=== PATIENT | female | born 1940 | race Caucasian/White ===

== ENCOUNTER 2021-02-06 11:19 | Outpatient (CLI) | payer MEDICAID, SELFPAY ==
--- NOTE | 2021-02-06 11:30 | NM_ITS ---
WS: [id number] NUCLEAR MEDICINE THYROID UPTAKE AND SCAN HISTORY: NONTOXIC SINGLE THYROID NODULE COMPARISON: Thyroid ultrasound 12/07/2020 Radionucleotide: 115 uCi Iodine-123 sodium iodide capsule. Oral ingestion. Imaging performed at 24 hours post ingestion of capsule. Marker placed over the chin and suprasternal notch. Hyperfunctioning nodule in the lower pole of the LEFT thyroid gland. There is mild bulging of the con tour in the lower pole of the RIGHT thyroid which corresponds to the visualized thyroid on ultrasound . No photopenic defect. Thyroid uptake at 24 hours: 40%. (Normal uptake at 24 hours 10-30%). NM/NM thyroid uptake multi [id number] IMPRESSION: 1. Hyperfunctioning nodule lower pole LEFT thyroid. 2. No cold nodules are identified. 3. Mild increased uptake at 24 hours.
== END 2021-02-06 11:20 | disposition home or self-care (01) ==
PROVIDERS: Visit Provider Specialist
DX: E04.1 Nontoxic single thyroid nodule (principal)
CPT/HCPCS: 78014; A9516

== ENCOUNTER → 2021-09-13 14:27 | Outpatient (BNVA) | payer MEDICAID, SELFPAY | PROVIDERS: Referring Provider Specialist; Visit Provider Internal Medicine | DX: E04.1 Nontoxic single thyroid nodule (principal); H91.90 Unspecified hearing loss, unspecified ear; E05.10 Thyrotoxicosis with toxic single thyroid nodule without thyrotoxic crisis or storm | CPT/HCPCS: 99204 ==

== ENCOUNTER → 2021-11-14 14:18 | Outpatient (BNVA) | payer MEDICAID, SELFPAY | PROVIDERS: Visit Provider Internal Medicine | DX: E05.10 Thyrotoxicosis with toxic single thyroid nodule without thyrotoxic crisis or storm (principal) | CPT/HCPCS: 99214 ==

== ENCOUNTER 2023-01-18 09:18 | Emergency (ER) | payer MEDICAID, SELFPAY ==
[2023-01-18] VITALS (9 sets, daily range): BP systolic 156–212; BP diastolic 90–113; PULSE 82–101; RESP 14–21; O2SAT 94–99
--- NOTE | 2023-01-18 09:24 | XR_ITS ---
WS: [id number] Exam: XR chest 1V portable [id number] Date/Time of Exam: 01/18/2023 9:24 AM Reason For Exam: cp Comparison 05/27/2019. The lungs are hyperinflated and clear. Unremarkable cardiomediastinal silhouette. No pleural effusion s. Bony structures are intact. Mild levoscoliosis at the thoracolumbar junction. XR/XR chest 1V portable [id number] IMPRESSION: 1. Pulmonary hyperinflation which may indicate obstructive lung disease. No acu te process noted.
--- NOTE | 2023-01-18 09:24 | CTR_ITS ---
PROCEDURE INFORMATION: Exam: CT Head Without Contrast Exam date and time: 01/18/2023 10:15 AM Age: 82 years old Clinical indication: Dizziness; Additional info: Dizzy TECHNIQUE: Imaging protocol: Computed tomography of the head without contrast. Radiation optimization: All CT scans at this facility use at least one of these dose optimization techniques: automated exposure control; mA and/or kV adjustment per patient size (includes targeted exams where dose is matched to clinical indication); or iterative reconstruction. REPORTING DATA: Count of CT and Cardiac NM exams in prior 12 months: This patient has received 0 known CTs and 0 known cardiac nuclear medicine studies in the 12 months prior to the current study. COMPARISON: NM bone scan whole body* [id number] 03/17/2019 9:35 AM RADIATION DOSE METRICS: Total DLP (mGy-cm): 1074.98 FINDINGS: Brain: There is no evidence of intracranial hemorrhage. There are no areas of mass effect, edema or midline shift. There are diffuse indistinct areas of decreased attenuation involving the periventricular white matter likely secondary to chronic white matter microvascular changes. Small indistinct hypodensities both basal ganglia likely representing old lacunar infarcts. There is age-related cerebral volume loss responsible for prominence of the cortical sulci. Cerebral ventricles: There is mild proportionate ventricular dilatation believed secondary to age related cerebral volume loss. Paranasal sinuses: Visualized sinuses are unremarkable. No fluid levels. Mastoid air cells: Visualized mastoid air cells are well aerated. Bones/joints: Unremarkable. No acute fracture. Soft tissues: Unremarkable. CT/CT head wo con* [id number] IMPRESSION: 1. No acute intracranial abnormalities. 2. Diffuse chronic white matter microvascular changes and small indistinct hypodensities presumed represent old lacunar infarcts which could be confirmed on MRI imaging of the brain if clinically warranted.
[2023-01-18] MEDS: hyDRALAzine 20 mg/mL INJ 1 mL 10 MG IVP (09:37)
--- NOTE | 2023-01-18 09:39 | ED_ITS ---
HPI - Arrhythmia/Palpitations General: Chief Complaint: Arrhythmia/Palpitations Stated Complaint: PAPITATIONS/DIZZINESS Time Seen by Provider: 01/18/23 09:20 Source: patient and EMS Mode of arrival: EMS Limitations: no limitations History of Present Illness: 82-year-old female states she has been having palpitations since this morning. States she does feel like her heart was beating fast she denies any actual pain she states she has had dizziness as well. She states she has been having intermittent dizziness since July states she feels like the room spinning states that she does not go to a physician she does not take any meds. Denies any headache has had some difficulty walking at times. Associated symptoms: Deny nausea or vomiting Review of Systems Const: Denies: fever(s), chills, body aches or change in appetite Eyes: Denies: blurry vision ENMT: Denies: throat pain or dental pain Card: Reports: palpitations; Denies: chest pain Resp: Denies: dyspnea GI: Denies: abdominal pain, nausea, vomiting or diarrhea : Denies: dysuria Musc: Denies: neck pain or back pain Skin/Breast: Denies: rash Neuro: Reports: dizziness; Denies: headache(s) PFSH ED PFSH: Medical History Arthritis Bony sclerosis Hypertension Multiple thyroid nodules Sleep apnea Tachycardia Surgical History History of appendectomy Family History Father Stroke Mother Stroke Social History Smoking and tobacco status: never smoked Second hand smoke exposure: No Smoking risk assessment/counseling performed?: No Alcohol intake: current Alcohol intake frequency: holidays/special occasions only Alcohol type: wine Desire information about alcohol rehabilitation?: No Counseling given: No Substance/Drug Use: never Desire information about substance/drug rehabilitation?: No Counseling given: No Adopted: No Caregiver/support person: No Lives independently: Yes Household members: none Housing: House Marital status: Number of children: 2 Highest education level completed: High School Graduate service: No Current occupational status: retired Physical Exam Const: COMMON NORMALS: no acute distress, patient oriented x3 and healthy appearing HENMT: COMMON NORMALS: normocephalic and atraumatic HEAD & SCALP: normocephalic and atraumatic Eye: COMMON NORMALS: Equal, round and reactive pupils present and EOMs intact bilaterally PUPIL: Yes Equal, round and reactive pupils present Neck/C-Spine: COMMON NORMALS: full ROM and supple Chest: COMMONS NORMALS: normal inspection of the chest and normal palpation of entire chest wall Resp: COMMON NORMALS: normal respiratory effort, No retractions, No use of accessory muscles and clear to auscultation bilaterally AUSCULTATION: clear to auscultation bilaterally Cardio: COMMON NORMALS: regular rate, regular rhythm and No murmurs present (Cardio) RATE: regular rate RHYTHM: regular rhythm GI: COMMON NORMALS: Normal to inspection, nondistended, normoactive bowel sounds present, Soft to palpation, non-tender and no masses PALPATION: Yes Soft to palpation Extremity: COMMON NORMALS: normal to inspection and full ROM Neuro: COMMON NORMALS: patient oriented x3, moves all extremities and no focal motor deficits Psych: COMMON NORMALS: mental status grossly normal, Normal thought process present and cooperative THOUGHT PROCESS: Normal thought process present Skin: COMMON NORMALS: no rashes or lesions noted and no wounds GENERAL SKIN EXAM: no rashes or lesions noted Course Vital Signs: Vital signs: Vital Signs Pulse Rate 87 01/18/23 12:31 Respiratory Rate 15 01/18/23 12:31 Blood Pressure 167/90 01/18/23 12:31 Pulse Oximetry 94 01/18/23 12:31 Oxygen Delivery Me thod Room Air 01/18/23 09:19 MDM - Arrhythmia/Palpitations Medical Decision Making Patient presents here with some palpitations along with dizziness she able ambulate here without any difficulties no signs of posterior stroke she was hypertensive have spoken to her at length she states that she does not like taking any meds she been told at one time she has her own physician I did inform I like to start her blood pressure medicine she refused also spoke to her about possible admission she states that she feels improved and would like to go home I did inform her that she needs to monitor her blood pressure at home because it was high here she told me that is always normal at home. She is to follow-up with her PCP and return if worsening troponins here are normal. Medical Records I reviewed the patient's medical records. Lab Data I reviewed the patient's lab results. 01/18/23 09:57 01/18/23 09:57 Radiology Impressions Chest X-Ray 01/18/23 09:24 IMPRESSION: 1. Pulmonary hyperinflation which may indicate obstructive lung disease. No acute process noted. Head CT 01/18/23 09:24 IMPRESSION: 1. No acute intracranial abnormalities. 2. Diffuse chronic white matter microvascular changes and small indistinct hypodensities presumed represent old lacunar infarcts which could be confirmed on MRI imaging of the brain if clinically warranted. Laboratory Results WBC 4.7 10^3/uL (4.0-10.0) 01/18/23 09:57 Corrected WBC Cancelled 01/18/23 08:37 RBC 4.83 10^6/uL (4.1-5.3) 01/18/23 09:57 Hgb 15.0 g/dL (11.5-15.3) 01/18/23 09:57 Hct 45.1 % (37.0-47.0) 01/18/23 09:57 MCV 93.4 fl (81-99) 01/18/23 09:57 MCH 31.1 pg (28.0-34.0) 01/18/23 09:57 MCHC 33.3 g/dL (30.0-36.0) 01/18/23 09:57 RDW 13.8 % (12.1-15.1) 01/18/23 09:57 Plt Count 161 10^3/cmm (130-400) 01/18/23 09:57 MPV 10.7 fL (7.4-10.4) H 01/18/23 09:57 Gran % Cancelled 01/18/23 08:37 Neut % (Auto) 57.8 % 01/18/23 09:57 Lymph % (Auto) 31.8 % 01/18/23 09:57 Lawrence % (Auto) 6.4 % 01/18/23 09:57 Eos % (Auto) 1.7 % 01/18/23 09:57 Baso % (Auto) 2.3 % 01/18/23 09:57 Neut # (Auto) 2.73 10^3/uL (1.8-7.7) 01/18/23 09:57 Lymph # (Auto) 1.5 10^3/uL (0.8-4.8) 01/18/23 09:57 Lawrence # (Auto) 0.3 10^3/uL (0.2-0.9) 01/18/23 09:57 Eos # (Auto) 0.1 10^3/uL (0.0-0.8) 01/18/23 09:57 Baso # (Auto) 0.1 10^3/uL (0.0-0.1) 01/18/23 09:57 Absolute Gran (auto) Cancelled 01/18/23 08:37 Nucleated RBC % (auto) 0 % 01/18/23 09:57 Nucleated RBCs # 0.0 /100WBC 01/18/23 09:57 PT 12.50 SECONDS (12.1-14.9) 01/18/23 08:37 INR 0.91 (0.8-1.2) 01/18/23 08:37 Sodium 143 mmol/L (136-145) 01/18/23 09:57 Potassium 3.2 mmol/L (3.5-5.1) L 01/18/23 09:57 Chloride 107 mmol/L (98-107) 01/18/23 09:57 Carbon Dioxide 24 mmol/L (22-29) 01/18/23 09:57 Anion Gap 15.2 (5-19) 01/18/23 09:57 BUN 9 mg/dL (8-23) 01/18/23 09:57 Creatinine 0.6 mg/dL (0.5-0.9) 01/18/23 09:57 GFR Calculation Not Reportable 01/18/23 09:57 Glucose 89 mg/dL (65-115) 01/18/23 09:57 Calculated Osmolality 294 mOsm/kg (285-295) 01/18/23 09:57 Calcium 9.5 mg/dL (8.5-10.5) 01/18/23 09:57 Total Bilirubin 0.5 mg/dL (0.15-1.2) 01/18/23 09:57 AST 24 U/L (0-32) 01/18/23 09:57 ALT 18 U/L (0-33) 01/18/23 09:57 Alkaline Phosphatase 46 U/L (35-105) 01/18/23 09:57 Troponin T Baseline 10 ng/L (0-10) 01/18/23 09:57 Troponin T 120 Minute 9.65 ng/L (0-10) 01/18/23 12:08 Delta Troponin T -0.35 ABS# (0-10) L 01/18/23 12:08 Total Protein 6.5 g/dL (6.6-8.7) L 01/18/23 09:57 Albumin 4.0 g/dL (3.5-5.2) 01/18/23 09:57 Globulin 2.5 g/dL (1.3-4.6) 01/18/23 09:57 EKG Data EKG 1: I personally reviewed and interpreted this EKG as follows: EKG interpretation date: 01/18/23 EKG interpretation time: 09:48 Interpretation: nsr hr [address] elevation qrs 97 qtc 449 Other EKG comments: Chest X-Ray 01/18/23 09:24 IMPRESSION: 1. Pulmonary hyperinflation which may indicate obstructive lung disease. No acute process noted. Head CT 01/18/23 09:24 IMPRESSION: 1. No acute intracranial abnormalities. 2. Diffuse chronic white matter microvascular changes and small indistinct hypodensities presumed represent old lacunar infarcts which could be confirmed on MRI imaging of the brain if clinically warranted. EKG 2: I personally reviewed and interpreted this EKG as follows: EKG interpretation date: 01/18/23 EKG interpretation time: 11:30 Interpretation: nsr hr [address] or t wave abnormalities qrs 101 qtc 432 Other EKG comments: Chest X-Ray 01/18/23 09:24 IMPRESSION: 1. Pulmonary hyperinflation which may indicate obstructive lung disease. No acute process noted. Head CT 01/18/23 09:24 IMPRESSION: 1. No acute intracranial abnormalities. 2. Diffuse chronic white matter microvascular changes and small indistinct hypodensities presumed represent old lacunar infarcts which could be confirmed on MRI imaging of the brain if clinically warranted. Discharge Plan Discharge Patient Disposition: Home Clinical Impression: Palpitations, Hypertension, Dizziness Condition: Stable Prescriptions: No Action vitamin A 2,400 mcg Capsule 2,400 mcg PO DAILY Vitamin B-12 1,000 mcg Tablet 1,000 mcg PO DAILY Calcium + D 600 mg-5 mcg (200 unit) Tablet 1 tab PO DAILY flaxseed oil 1,000 mg Capsule 1,000 mg PO DAILY Rx Instructions: administer with a meal Vitamin C 500 mg Tablet 500 mg PO DAILY vitamin B complex Tablet 1 tab PO DAILY hawthorn murray 500 mg Capsule 500 mg PO DAILY vitamin D3-vitamin K2 1,250-200 mcg Capsule 1 cap PO DAILY Thyroid Essentials 1 cap PO DAILY [place] Bark Capsules 1 cap PO DAILY Discharge Orders: Discharge ED (Routine); Ordered 01/18/23 Ordered By: Markie Kaye Discharge Diet: Advance as tolerated Discharge Activity: Resume usual activity Patient Instructions: Heart Palpitations (ED), Hypertension (ED) Coding Level of Care Code ED Electronic Data Processing Auditor for Mariah hSay
[2023-01-18 09:58] LABS: INR 0.91 (0.8-1.2)
--- NOTE | 2023-01-18 10:18 | PC.PHAR ---
pt states she doesnt take any prescription medications-pt states she takes alot of the swason brand vitamins and minerals pt states she thinks she got all of the otc items that she takes
[2023-01-18 10:28] LABS: Alanine Aminotransferase 18 U/L (0-33); Alkaline Phosphatase 46 U/L (35-105); Aspartate Amino Transferase 24 U/L (0-32); Blood Urea Nitrogen 9 mg/dL (8-23); Calcium 9.5 mg/dL (8.5-10.5); Carbon Dioxide 24 mmol/L (22-29); Chloride 107 mmol/L (98-107); Globulin 2.5 g/dL (1.3-4.6); Glucose 89 mg/dL (65-115); Osmolality Calculated 294 mOsm/kg (285-295); Sodium 143 mmol/L (136-145); Total Bilirubin 0.5 mg/dL (0.15-1.2); Total Protein 6.5 g/dL (6.6-8.7)
[2023-01-18 10:29] LABS: Anion Gap 15.2 (5-19); Potassium 3.2 mmol/L (3.5-5.1); Troponin(5th) Baseline 10 ng/L (0-10)
[2023-01-18 10:56] LABS: Basophils # 0.1 10^3/uL (0.0-0.1); Basophils % 2.3 %; Eosinophils # 0.1 10^3/uL (0.0-0.8); Eosinophils % 1.7 %; Hematocrit 45.1 % (37.0-47.0); Lymphocytes # 1.5 10^3/uL (0.8-4.8); Lymphocytes % 31.8 %; Mean Corpuscular HGB Conc 33.3 g/dL (30.0-36.0); Mean Corpuscular Hemoglobin 31.1 pg (28.0-34.0); Mean Corpuscular Volume 93.4 fl (81-99); Mean Platelet Volume 10.7 fL (7.4-10.4); Monocytes # 0.3 10^3/uL (0.2-0.9); Monocytes % 6.4 %; Neutrophils # 2.73 10^3/uL (1.8-7.7); Neutrophils % 57.8 %; Nucleated Red Blood Cells % 0 %; Platelet Count 161 10^3/cmm (130-400); Red Blood Count 4.83 10^6/uL (4.1-5.3); Red Cell Distribution Width 13.8 % (12.1-15.1); White Blood Count 4.7 10^3/uL (4.0-10.0)
--- NOTE | 2023-01-18 11:24 | ECG_ITS ---
[facility] Test Date: 2023-01-18 Pat Name: Jyotsna Rubio Department: Room: Gender: Female Technical Assistance Consultant: : 1940 Requested By: Markie Kaye Order Number: [id number] Marko MD: Lincoln Naidu M.D. Measurements Intervals [place] Rate: 88 P: 46 [place]: 137 QRS: -57 QRSD: 101 T: 48 QT: 387 QTc: 469 Interpretive Statements SINUS RHYTHM LEFT AXIS DEVIATION [QRS AXIS < -30] PATTERN CONSISTENT WITH PULMONARY DISEASE LEFT VENTRICULAR HYPERTROPHY AND ST-T CHANGE [VOLTAGE CRITERIA PLUS ST/T ABNORMALITY] Compared to ECG 01/18/2023 09:48:18 No significant changes Electronically Signed On 01-18-2023 13:13:18 CDT by Lincoln Naidu M.D. [id number]
[2023-01-18 12:31] LABS: Troponin 5 2HR 9.65 ng/L (0-10)
[2023-01-18 12:44] LABS: Troponin 5 2HR Delta -0.35 ABS# (0-10)
--- NOTE | 2023-01-18 15:24 | ECG_ITS ---
[facility] Test Date: 2023-01-18 Pat Name: Jyotsna Rubio Department: Room: Gender: Female Instructional Design Specialist: : 1940 Requested By: Markie Kaye Order Number: [id number] Marko MD: Lincoln Naidu M.D. Measurements Intervals [place] Rate: 80 P: 6 [place]: 140 QRS: -53 QRSD: 97 T: 13 QT: 412 QTc: 478 Interpretive Statements SINUS RHYTHM LEFT AXIS DEVIATION [QRS AXIS < -30] PATTERN CONSISTENT WITH PULMONARY DISEASE LEFT VENTRICULAR HYPERTROPHY AND ST-T CHANGE [VOLTAGE CRITERIA PLUS ST/T ABNORMALITY] Compared to ECG 01/14/2016 06:41:18 ST (T wave) deviation now present Myocardial infarct finding no longer present Electronically Signed On 01-18-2023 10:04:59 CDT by Lincoln Naidu M.D. [email or web address] [email or web address] [facility]cher[facility].[employer]/store/[id number]
--- NOTE | 2023-01-23 15:11 | DCPLANNER ---
supply chain systems manager called patient due to no primary care physician - no answer at this time.
== END 2023-01-18 13:15 | disposition home or self-care (01) ==
PROVIDERS: Emergency Provider Emergency Medicine
DX: R00.2 Palpitations (principal); R42 Dizziness and giddiness; I10 Essential (primary) hypertension
CPT/HCPCS: 36415; 70450; 71045; 80053; 84484; 85025; 85610; 93005; 96374; 99285; J0360